=== PATIENT | male | born 1995 | race African-American/Black ===

== ENCOUNTER 2016-08-03 11:00 | Emergency (ER) | payer SELFPAY ==
[~2016-08-03] VITALS: Ht 182.9 cm; Wt 73.3 kg
[2016-08-03 11:00] VITALS: Ht 182.9 cm; Wt 73.3 kg
[~2016-08-03 11:00] MED LIST: NO ROUTINE MEDS
[2016-08-03] MEDS ORDERED: ALBU2.5V7 AEROSOL (11:10)
--- NOTE | 2016-08-03 11:17 | NUR ---
PROVIDER DR HUMPHREY IN TO SEE PATIENT.
--- NOTE | 2016-08-03 11:27 | ERPDOC ---
Departure Disposition Decision Date: Aug 03, 2016 Disposition Decision Time: 12:21 Disposition: 01 DISCHARGED HOME, SELF-CARE Impression Impression: 1) ACUTE BRONCHITIS Impression: Primary Impression: Acute bronchitis Bronchitis organism: unspecified organism Qualified Codes: J20.9 - Acute bronchitis, unspecified Condition: Improved Seen By: Physician only Referrals: [facility] 1 Week Patient Instructions: Acute Bronchitis (ED) Problems/Meds/Labs Reviewed?: Yes Medications reviewed and manag: Yes Additional Instructions: 1) CONTINUE TO DRINK PLENTY OF FLUIDS, ESPECIALLY WATER 2) MAY TAKE OVER THE COUNTER ANALGESICS OR ANTI-INFLAMMATORIES FOR MILD TO MODERATE DISCOMFORT 3) MAY TAKE PHENERGAN WITH CODEINE EVERY 6 HOURS NEEDED FOR COUGH, CONGESTION OR PAIN DO NOT DRIVE WHILE TAKING THIS MEDICATION 4) MAY TAKE TESSALON PERLES 100 MG THREE TIMES A DAY FOR COUGH 5) ZITHROMAX Z-PACK DIRECTED FOR FIVE DAYS 6) FOLLOW UP WITH [facility] OR YOUR PCP IN NEXT 1-2 WEEKS FOR RE- EVALUATION Departure Forms: Return to Work/School Permit Return to Work/School Date: August 06, 2016 Follow up care ordered?: Yes Mental Status: Alert, Oriented Scripts Prednisone (Prednisone) 10 Mg Tablet 10 MG PO DIRECTED, #24 TAB 0 Refills 5 Tablets by mouth daily for 2 days THEN, 4 Tablets by mouth daily for 2 days THEN, 3 Tablets by mouth daily for 1 day THEN, 2 Tablets by mouth daily for 1 day THEN, 1 Tablet by mouth daily for 1 Day. Prov: CHRISTINE TURPIN MD 08/03/16 Benzonatate (Benzonatate) 100 Mg Capsule 1 CAP PO TID Y for COUGH, #30 CAP 0 Refills DO NOT BITE, CHEW, OR CRUSH Prov: CHRISTINE TURPIN MD 08/03/16 Promethazine HCl/Codeine (Promethazine-Codeine Syrup) 118 Ml Syrup 5 ML PO Q6H Y for COUGH, #100 ML 0 Refills Prov: CHRISTINE TURPIN MD 08/03/16 Azithromycin (Zithromax) 250 Mg Tablet 1 TAB PO DAILY, #6 TAB 0 Refills TAKE TWO ON DAY ONE, THEN ONE TAB DAILY UNTIL ALL TAKEN. Prov: CHRISTINE TURPIN MD 08/03/16 HPI - Cough/URI General Chief Complaint: Cough,Fever,Flu,URI Stated Complaint: SOA, COUGH Time Seen by Provider: 11:14 Source: patient HPI - Cough/URI Initial Comments 20 YO BM who presents to ER for cough, congestion, fever, chills. He reports onset of symptoms about three days ago with nasal congestion and body aches. His symptoms have progressively worsened. He complains of pain to chest with breathing and coughing. Patient has a history of asthma. He is coughing up yellow sputum. Denies nausea, vomiting or diarrhea. Patient reports he has been eating normally. He is trying to drink a lot of fluids especially water and things like Gatorade. Occurred At: home Pain/Severity Scale: Now: 8/10 (pain with coughing in chest) Prior Episodes/Possible Cause: illness exposure Associated Symptoms: chest pain/soreness, cough, fever/chills, muscle aches, nasal congestion, nasal drainage, wheezing Allergies: Coded Allergies: No Known Allergies (Unverified , 08/03/16) Past History Past Medical History Respiratory: asthma Surgical History Denies Surgeries Family History Family History Comments Non-contributory Vaccines Hx Influenza Vaccination: Yes (FALL 2013) Hx Tetanus, Diptheria, Pertuss: Yes (UTD) Social History Substance Use Type: does not use Current Occupational Status: student Review of Systems Constitutional Constitutional: chills, fatigue, fever (?subjective), DENIES: syncope Eyes General: DENIES: erythema, exudate, photophobia Vision: DENIES: blurring ENMT Ears: DENIES: drainage Sinuses: congestion Mouth/Throat: DENIES: painful swallowing, sore throat Cardiovascular Cardiac: chest pain, see HPI Rhythm/Rate: DENIES: irregular beat, palpitations Pulmonary Respiratory: cough, pleuritic chest pain, see HPI, sputum (yellow) GI Upper Abdomen: DENIES: vomiting Lower Abdomen: DENIES: diarrhea General: DENIES: dysuria, hematuria Integumentary Skin: DENIES: rash Neurological General: headache, DENIES: seizures, syncope Physical Exam General Vitals and Pain First Documented Vital Signs Date Time Temp Pulse Resp B/P Pulse Ox O2 Delivery O2 Flow Rate FiO2 08/03/16 11:00 99.9 95 20 134/63 93 Room Air Weight: Kilograms: 73.300 Height (feet): 6 Height (inches): 0 Triage Pain Scale: Normal Exams: Head: Normocephalic w/o trauma Eyes: Pupils are PERRLA w/ EOMI, No scleral icterus Abdomen: Bowel sounds positive, soft, non-tender, non-distended, no hepatosplenomegaly, masses or bruits noted Musculoskeletal: No tenderness, or deformity noted, good range of motion Integumentary: No rashes, hives, or bruising noted Neurologic: Patient is alert, and oriented, cranial nerves, motor/sensory/ cerebellar, exams w/o gross deficits Psychiatric: Patient exhibits, appropriate attention, emotion and affect Respiratory (brief) Respiratory: FOUND: tenderness (tender to palpation over bilateral ribs and chest wall), wheezes (bilaterally) Comments scattered wheezes bilaterally. coarse breath sounds bilateral bases. Cardiovascular (brief) Cardiac: FOUND: regular rhythm, NOT FOUND: murmur, pedal edema, rub Capillary Refill: <2 sec Pulses: all distal extremities, equal, strong Comments mildly tachycardic with HR 105 Differential Diagnoses Differential Diagnoses Considering: Acute Bronchitis, Asthma Exacerbation, Influenza, Pneumonia, URI, Viral Syndrome Progress Results/Orders Orders Procedure Category Date Status Time Chest, Pa & Lateral RAD 08/03/16 Resulted 11:19 Albuterol/Ipratropium PHA 08/03/16 Complete (Duoneb) 11:30 Ketorolac (Toradol) PHA 08/03/16 Complete 11:30 Prednisone PHA 08/03/16 Complete (Prednisone) 11:30 Medications Current ED Medications Albuterol/ Ipratropium (Duoneb) 3 ml O ONCE AEROSOL Last administered on 11:31; Start 08/03/16 at 11:30; Stop 08/03/16 at 11:31; Status DC Ketorolac Tromethamine (Toradol) 60 mg O ONCE IM Last administered on 11:26; Start 08/03/16 at 11:30; Stop 08/03/16 at 11:31; Status DC Prednisone (PredniSONE) 40 mg O ONCE PO Last administered on 08/03/16 11:26; Start 08/03/16 at 11:30; Stop 08/03/16 at 11:31; Status DC Progress Progress After breathing treatment, wheezes improved. Coarseness resolved. No crackles or rales. Breathing is non-labored. RA O2 sat 95-98% Xray Xray : Xray: CXR PA/Lat (No definite consolidation or effusion. Heart and mediastinum WNL. Slightly increased interstitial markings bilaterally.) Interpretation: Interpreted by CHRISTINE Luna MD Aug 03, 2016 11:27
[2016-08-03] MEDS ORDERED: KETOROLAC 60mg/2ml INJECTION IM ONE (11:30)
[2016-08-03] MEDS ORDERED: ALBUTEROL/IPRATROPIUM INHAL. 2.5mg-0.5mg/3ml Neb. AEROSOL ONE (11:30)
[2016-08-03] MEDS ORDERED: PredniSONE 10 MG TABLET PO ONE (11:30)
--- NOTE | 2016-08-03 11:33 | NUR ---
RT IN ROOM GIVING BREATHING TRX.
--- NOTE | 2016-08-03 11:41 | NUR ---
TO XRAY PER CART.
[2016-08-03] MEDS ORDERED: CODE118S2 PO (12:26)
[2016-08-03] MEDS ORDERED: AZIT250T PO (12:26)
[2016-08-03] MEDS ORDERED: BENZ-16 PO (12:28)
[2016-08-03] MEDS ORDERED: PRED10TA PO (12:33)
[2016-08-03 12:39] VITALS: BP 134/63; PULSE 83; RESP 19; TEMP 99.9; O2SAT 91
--- NOTE | 2016-08-03 13:01 | DI ---
INDICATION: ITS.REASON: COUGH, CONGESTION, FEVER PROCEDURE: CHEST 2-VIEWS UPRIGHT (PA \T\ LAT) Encounter: Initial COMPARISON: None FINDINGS: The lungs are clear without evidence of focal abnormal airspace opacity. There is no pleural effusion or pneumothorax. The heart size, mediastinal contours and pulmonary vascularity are within normal limits. There is no significant skeletal abnormality. IMPRESSION: No acute cardiopulmonary disease. .
== END 2016-08-03 12:39 | disposition home or self-care (01) ==
LOC: ED 11:00
DX: J20.9 Acute bronchitis, unspecified (principal)
CPT/HCPCS: 94640